=== PATIENT | female | born 1980 | race Hispanic/Latino ===

== ENCOUNTER → 2020-07-05 | Outpatient (RCR) | payer BC | LOC: PT 06-21 09:03 | PROVIDERS: ATTEND Internal Medicine | DX: G35 Multiple sclerosis (principal) ==

== ENCOUNTER 2020-08-02 12:00 | Outpatient (RCR) | payer BC ==
[~2020-08-02 12:00] MED LIST: BUPIVACAINE LIPOSOME/PF 266 MG/20 ML IJ ONE
== END 2020-08-05 ==
LOC: ST 12:00
PROVIDERS: ATTEND Nurse Practitioner Primary Care
DX: G35 Multiple sclerosis (principal)
CPT/HCPCS: 92507; 92522; 97110 ×7; 97112 ×2; 97140; 97165; 97530; C9290; G0283 ×2

== ENCOUNTER → 2020-09-04 | Outpatient (RCR) | payer BC | LOC: OT 08-07 11:00 → ST 08-07 11:07 → OT 08-12 12:17 → ST 08-15 11:13 → OT 08-15 11:13 → ST 08-21 11:12 → OT 08-28 10:57 → ST 08-28 10:59 → OT 08-30 11:00 | PROVIDERS: ATTEND Nurse Practitioner Primary Care | DX: R47.1 Dysarthria and anarthria (principal); G35 Multiple sclerosis; I10 Essential (primary) hypertension | CPT/HCPCS: 92507 ×6; 97110 ×7; 97535; G0283 ==

== ENCOUNTER 2020-10-03 14:54 | Outpatient (RCR) | payer BC | END 2020-10-05 | LOC: PT 14:54 | PROVIDERS: ATTEND Nurse Practitioner Primary Care | DX: R47.1 Dysarthria and anarthria (principal); G35 Multiple sclerosis; I10 Essential (primary) hypertension ==

== ENCOUNTER → 2020-11-05 | Outpatient (RCR) | payer BC | LOC: PT 10-09 11:14 → OT 10-11 10:52 → PT 10-15 10:57 → OT 10-22 11:16 → PT 10-25 13:00 → OT 10-25 13:58 → PT 10-30 09:00 → OT 10:43 | PROVIDERS: ATTEND Nurse Practitioner Primary Care | DX: G35 Multiple sclerosis (principal) | CPT/HCPCS: 97110 ×12; 97112 ×3; 97139; 97140; G0283 ==

== ENCOUNTER 2020-11-28 10:00 | Outpatient (RCR) | payer BC | END 2020-12-05 | LOC: OT 10:00 | PROVIDERS: ATTEND Nurse Practitioner Primary Care | DX: G35 Multiple sclerosis (principal) | CPT/HCPCS: 97139 ==